=== PATIENT | male | born 1975 | race African-American/Black ===

== ENCOUNTER 2021-01-01 12:32 | Emergency (ER) | payer MEDICAID ==
[~2021-01-01] VITALS: Ht 172.7 cm; Wt 132.9 kg
--- NOTE | 2021-01-01 13:43 | Diagnostic Imaging Report ---
Indication: Traumatic pain left knee Technique: 3 views of the left knee Comparison: None Findings: No suprapatellar effusion. No acute fracture. No dislocation. There are degenerative proliferative changes involving the medial joint compartment and the patella. There is minimal medial compartment joint space narrowing.. Impression: Degenerative changes No acute bony trauma
--- NOTE | 2021-01-01 14:06 | Emergency Room Report ---
History of Present Illness General Chief Complaint: Lower Extremity Injury Source: Significant Other Present Illness HPI 45 YO male presents to the ED d/o 09/07 localized pain of the left knee with medial anterior tenderness. S/p mechanical fall 3 weeks ago. The patient describes landing onto the left knee. Patient states that he has been having pain with weightbearing and walking. 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 He denies paresthesias. He denies warmth, erythema or significant swelling. Patient denies clicking noises. He denies hitting his head or having a loss of consciousness. He denie s midline neck or back pain. 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 COVID-19 Screening: Negative COVID-19 COVID-19 Testing Source: 11/2020 Patient History Past Medical History: see triage record Past Surgical History: none Pertinent Family History: none Reviewed Nursing Documentation: PMH: Agreed; PSxH: Agreed Nursing Documentation-PMH Past Medical History: No Stated History Review of Systems All Other Systems: negative except mentioned in HPI Physical Exam Vital Signs Date Time Temp Pulse Resp B/P (MAP) Pulse Ox O2 Delivery O2 Flow Rate FiO2 01/01/21 12:35 98.4 81 16 123/85 (98) 96 Room Air Sp02 EP Interpretation: reviewed, normal General Appearance: no apparent distress, alert, GCS 15, non-toxic Head: normocephalic, atraumatic Eyes: bilateral eye normal inspection, bilateral eye PERRL ENT: hearing grossly normal, normal voice Neck: full range of motion, no bony tend Respiratory: chest non-tender, lungs clear, normal breath sounds, speaking full sentences Cardiovascular #1: regular rate, rhythm Musculoskeletal: back normal, normal range of motion, gait/station normal - slightly favoring the left leg, tender - ttp to the anteriomedial aspect of the left knee, no increased laxity of the knee joint. No significant or obvious swelling, no bruises, erythema or warmth. Neurologic: alert, motor strength/tone normal, oriented x3, sensory intact, responsive, speech normal Psychiatric: judgement/insight normal Skin: no rash, normal color Medical Decision Making PA Attestation Dr. Deshpande is my supervising Physician whom patient management has been discussed with. Diagnostic Impression: Primary Impression: Soft tissue injury of left knee Qualified Codes: S89.92XA - Unspecified injury of left lower leg, initial encounter ER Course 45 YO male presents to the ED d/o 09/07 localized pain of the left knee with medial anterior tenderness. S/p mechanical fall 3 weeks ago. The patient describes landing onto the left knee. Patient states that he has been having pain with weightbearing and walking. 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 He denies paresthesias. He denies warmth, erythema or significant swelling. Patient denies clicking noises. He denies hitting his head or having a loss of consciousness. He denies midline neck or back pain. Ddx considered but are not limited to Fracture, dislocation, contusion, Sprain/Strain/Spasm, Epidural abscess, Neoplastic mets. Vital signs: are WNL, pt. is afebrile H&PE are most consistent with musculoskeletal injury will perform imaging to r/o fractures/dislocations. ORDERS: - X-ray 3 views - negative for fx, Dislocation, or significant soft tissue injury, per preliminary read in ED, and signed by BENI Alexander, my supervising physician has reviewed, and agrees with my interpretation. ED INTERVENTIONS: -Dex wrap applied to the left knee by application technician. Pt. remains neurovascularly intact. DISCHARGE: At this time pt. is stable for d/c to home. Will provide printed patient care instructions, and any necessary prescriptions. Care plan and follow up instructions have been discussed with the patient prior to discharge. Other X-Ray Diagnostic Results Other X-Ray Diagnostic Results : X-Ray ordered: Left Knee # of Views/Limited Vs Complete: 3 View Indication: Pain EP Interpretation: Yes PA Xray: Interpretation reviewed, by supervising MD, and agrees with findings. Interpretation: no dislocation, no soft tissue swelling, no fractures Impression: No acute disease Electronically Signed by: Chantelle Alexander PA-C Last Vital Signs Date Time Temp Pulse Resp B/P (MAP) Pulse Ox O2 Delivery O2 Flow Rate FiO2 01/01/21 12:35 98.4 81 16 123/85 (98) 96 Room Air Disposition: HOME, SELF-CARE Condition: Stable Scripts Diclofenac Sodium (VOLTAREN) 100 Gm Gel..gram. 100 GM TP TID, #100 GM Prov: Chantelle Alexander 01/01/21 Ibuprofen* (MOTRIN*) 800 Mg Tablet 800 MG ORAL THREE TIMES A DAY, #30 TAB 0 Refills Prov: Chantelle Alexander 01/01/21 Referrals: NOT CHOSEN IPA/MD,REFERRING (PCP) Orthopedic Urgent Care Departure Forms: Return to Work Return to Work Date: Jan 05, 2021 Other Restrictions: Light duty until orthopedic follow up. Return to Full Activity: Jan 12, 2021 Work Restrictions: No Prolonged Standing Patient Instructions: Combined Knee Ligament Sprain Additional Instructions: Take medications as directed. Follow up with an [facility]FT[facility] in 3-5 days, even if your symptoms have resolved. If symptoms persist MRI may be required at the discretion of your PCP or Ortho Specialist. --Please review list of primary care clinics, if you do not already have a primary care provider who can give you an Orthopedic Referral. Return sooner to ED if new symptoms occur, or current symptoms become worse. - Please note that this Emergency Department Report was dictated using [employer] advisor technology software, occasionally this can lead to erroneous entry secondary to interpretation by the dictation equipment. Chantelle Alexander Jan 01, 2021 14:06
[2021-01-01] MEDS ORDERED: VOLTAREN100 G1 TP (14:07)
[2021-01-01] MEDS ORDERED: IBUPROFEN800 MG ORAL (14:07)
[2021-01-01 14:15] VITALS: BP 129/69
== END 2021-01-01 14:16 | disposition home or self-care (01) ==
LOC: EMR 13:20
DX: S89.92XA Unspecified injury of left lower leg, initial encounter (principal); W01.10XA Fall on same level from slipping, tripping and stumbling with subsequent striking against unspecified object, initial encounter; Y93.H3 Activity, building and construction; Y92.9 Unspecified place or not applicable
CPT/HCPCS: 73562; Z7502; 99283